=== PATIENT | female | born 1945 | race Caucasian/White ===

== ENCOUNTER 2018-01-15 13:17 | Outpatient (CLI) | payer MEDICARE, BC | END 2018-01-15 13:18 | disposition home or self-care (01) | LOC: BICMRI 13:17 | PROVIDERS: ATTEND Orthopaedic Surgery | DX: M79.621 Pain in right upper arm (principal); M79.622 Pain in left upper arm; M62.81 Muscle weakness (generalized); S13.140A Subluxation of C3/C4 cervical vertebrae, initial encounter; S13.150A Subluxation of C4/C5 cervical vertebrae, initial encounter; M99.51 Intervertebral disc stenosis of neural canal of cervical region; Z98.890 Other specified postprocedural states | CPT/HCPCS: 72141 ==

== ENCOUNTER 2018-01-31 09:21 | Outpatient (CLI) | payer MEDICARE, BC ==
--- NOTE | 2018-01-31 12:06 | CT ---
CT OF THE CERVICAL SPINE WITHOUT CONTRAST: INDICATION: History of right-sided shoulder pain and cervical radiculopathy. COMPARISON: MRI of the cervical spine dated 09/03/14. FINDINGS: Since the comparison examination, there has been interval placement of an ACDF plate spanning C3 thro ugh C5. Anterior translation of C3 and C4 is similar. There is ankylosis of the right C3-4 facet co mplex. There is at least partial ankylosis of the left C3-4 facet complex. There is suspected bridg ing interbody bone graft at C3-4. No appreciable interbody bone graft is seen within the bodies of C 4-5. At C2-C3, there is facet hypertrophy and osteoarthrosis without appreciable bilateral central canal a nd neural foraminal narrowing. At C3-4, there is uncovertebral hypertrophy and facet hypertrophy inducing mild to moderate osseous r ight neural foraminal narrowing. At C4-5, there is disk-osteophyte complex with facet hypertrophy inducing at least moderate right oss eous neural foraminal narrowing and mild osseous central canal narrowing. At C5-6, there is a disk-osteophyte complex with facet hypertrophy and uncovertebral hypertrophy velma cing severe left osseous neural foraminal narrowing and mild osseous central canal narrowing. At C6-7, there is no appreciable osseous central canal or neural foraminal narrowing. At C7-T1, there is no appreciable central canal or neural foraminal narrowing. IMPRESSION: 1. Postoperative cervical spine. 2. Multilevel spondylosis of the cervical spine. Osseous central canal and neural foraminal narrowi ng. POS: [facility]
== END 2018-01-31 09:22 | disposition home or self-care (01) ==
LOC: TBSIIMAG 09:21
PROVIDERS: ATTEND Neurological Surgery
DX: M47.22 Other spondylosis with radiculopathy, cervical region (principal); Z98.1 Arthrodesis status
CPT/HCPCS: 72125

== ENCOUNTER 2018-06-12 12:35 | Outpatient (CLI) | payer MEDICARE, BC | END 2018-06-12 12:36 | disposition home or self-care (01) | LOC: BICULT 12:35 | PROVIDERS: ATTEND Family Medicine | DX: E04.1 Nontoxic single thyroid nodule (principal); N18.3 Chronic kidney disease, stage 3 (moderate) | CPT/HCPCS: 76536 ==

== ENCOUNTER 2018-07-11 14:01 | Outpatient (CLI) | payer MEDICARE, BC | END 2018-07-11 14:02 | disposition home or self-care (01) | LOC: BICMAMMO 14:01 | PROVIDERS: ATTEND Family Medicine | DX: Z13.820 Encounter for screening for osteoporosis (principal); Z78.0 Asymptomatic menopausal state; M85.88 Other specified disorders of bone density and structure, other site | CPT/HCPCS: 77080 ==

== ENCOUNTER 2019-02-07 10:25 | Outpatient (CLI) | payer MEDICARE, BC ==
--- NOTE | 2019-02-07 11:31 | ULT ---
THYROID ULTRASOUND: HISTORY: Right thyroid nodule. COMPARISON: Though the patient states that there are prior ultrasounds available, prior ultrasound is not on the PACS system. FINDINGS: Left thyroid lobe measures 4.7 x 1.3 x 1.4 cm. The right thyroid lobe measures 4.7 x 1.3 x 1.5 cm. The thyroid isthmus is 0.3 cm. There is a solitary solid nodule in the mid aspect of the right thyroid lobe measuring 1.0 x 1.1 x 0. 8 cm. Note, the nodule is slightly taller than wide. IMPRESSION: Solitary solid nodule in the right thyroid lobe. TIRADS calculator score TR4. Moderately suspicious . Followup imaging is recommended. POS: OFF
== END 2019-02-07 10:26 | disposition home or self-care (01) ==
LOC: BICULT 10:25
PROVIDERS: ATTEND Otolaryngology Plastic Surgery within the Head & Neck
DX: E04.1 Nontoxic single thyroid nodule (principal)
CPT/HCPCS: 76536

== ENCOUNTER 2019-04-16 14:04 | Emergency (ER) | payer MEDICARE, BC ==
[2019-04-16 14:45] LABS: #Eosinphils 0.1 thou/uL (0.0-0.7); #Lymphocytes 1.9 thou/uL (1.20-3.40); #Monocytes 1.3 thou/uL (0.11-0.59); #Neutrophils 6.7 thou/uL (1.40-6.50); %Basophils 0.5 % (0.0-1.0); %Eosinophils 1.4 % (0.0-10.0); %Lymphocytes 18.7 % (21.0-51.0); %Monocytes 12.5 % (0.0-10.0); %Neutrophils 66.9 % (42.0-75.0); Hemoglobin 11.4 g/dL (12.0-16.0); Mean Corpuscular HGB CONC 32.8 g/dL (32.0-36.0); Mean Corpuscular Hemoglobin 32.1 pg (27.0-31.0); Mean Corpuscular Volume 97.9 fL (78.0-98.0); Mean Platelet Volume 7.7 fL (7.4-10.4); Platelet Count 161 thou/uL (130-400); RBC Distribution Width 12.7 % (11.5-14.5); Red Blood Cell (RBC) Count 3.55 mill/uL (4.20-5.40)
[2019-04-16 14:52] LABS: Bilirubin Negative (Negative); Blood, Urine Negative (Negative); Clarity CLEAR (Clear); Glucose, Urine (Dipstick) Negative (Negative); Leukocyte Negative (Negative); Nitrite Negative (Negative); Protein, Urine (Dipstick) Negative (Neg-Trace); Specific Gravity, Urine 1.007 (1.002-1.036); Urobilinogen 0.2 mg/dL (0.2-1.0)
[2019-04-16 15:09] LABS: ALT (SGPT) 17 U/L (8-55); AST (SGOT) 20 U/L (5-34); Albumin 4.1 g/dL (3.4-4.8); Alkaline Phosphatase 83 U/L (40-150); Anion Gap 14 mmol/L (10-20); BUN (Urea Nitrogen) 30 mg/dL (9.8-20.1); Bilirubin, Total 0.5 mg/dL (0.2-1.2); Calc. Creatinine Clearance 0 mL/min (70-130); Calcium 9.7 mg/dL (7.8-10.44); Carbon Dioxide 22 mmol/L (23-31); Chloride 103 mmol/L (98-107); Estimated GFR-MDRD 40; Glucose 99 mg/dL (83-110); Lipase 59 U/L (8-78); Potassium 4.3 mmol/L (3.5-5.1); Protein, Total 7.1 g/dL (6.0-8.3); Sodium 135 mmol/L (136-145)
--- NOTE | 2019-04-16 16:37 | CT ---
EXAM: CT ABDOMEN AND PELVIS HISTORY: Regarding. Right lower quadrant pain. COMPARISON: None. Procedure: Multiple contiguous axial images were obtained and a CT of the abdomen and pelvis with IV contrast. C oronal reformats were performed. FINDINGS: Lower Chest: Scar/atelectasis in the lingula and middle lobe Vessels: Atherosclerosis of a nonaneurysmal aorta. Atherosclerosis of the celiac artery origin. Heart: Normal size. No pericardial fluid. Mitral valve calcification. Abdomen: Portal vein:Patent Gallbladder: Surgically absent Liver: within normal limits. Pancreas: within normal limits. Spleen: within normal limits. Adrenals: within normal limits. Kidneys: Symmetric enhancement. Bilaterally no obstructive uropathy. Subcentimeter hypodensities in t he superior pole of both kidneys are too small to characterize but statistically favored to be cysts. Peritoneum: No ascites or free air, no fluid collection. Bowel: Limited evaluation due to lack of oral contrast. Grossly unremarkable gastric mucosa. Multiple normal caliber small bowel loops. Ileocecal junction is normal. Definite appendix is difficult to appreciate. Nevertheless, no inflammation of the cecal apex. Scattered fecal material in a nondistend ed, nondilated colon. Extensive diverticulosis. Questionable bowel wall thickening with pericolonic fat stranding involving the sigmoid colon. Correlate for possible diverticulitis or infectious proces s. Underlying tumor cannot be excluded. Nonemergent colonoscopy is recommended. Mesentery and Retroperitoneum: No enlarged mesenteric or retroperitoneal lymph nodes. Abdominal Wall: within normal limits. Pelvis: Reproductive Organs: Hysterectomy changes. Pelvis: Limited evaluation due to beam attenuation artifact from left hip prosthesis. There is a smal l amount of free fluid in the pelvis. Bladder: Grossly unremarkable. Bones: Scoliosis with endplate degenerative changes. IMPRESSION: 1. Nonvisualization of the appendix. Nevertheless, no inflammation of the cecal apex. 2. Extensive diverticulosis with possible diverticulitis or infectious colitis involving the sigmoid colon. Underlying mass cannot be excluded. Nonemergent colonoscopy is recommended.
== END 2019-04-16 17:58 | disposition home or self-care (01) ==
LOC: ERS 14:04
DX: K57.30 Diverticulosis of large intestine without perforation or abscess without bleeding (principal); E78.5 Hyperlipidemia, unspecified
CPT/HCPCS: 36415; 74177; 80048; 81003; 82570; 83690; 84156; 85025

== ENCOUNTER 2019-07-23 12:44 | Outpatient (CLI) | payer MEDICARE, BC ==
--- NOTE | 2019-07-23 14:48 | MRI ---
MRI lumbar spine with and without contrast: 07/23/2019 COMPARISON: 10/05/2016 History: Lumbar stenosis, low back pain radiating into bilateral lower extremities, bilateral lower e xtremity radiculopathy TECHNIQUE: Multiplanar multisequence MR imaging of the lumbar spine obtained with and without contras t FINDINGS: The sagittal STIR imaging demonstrates no new focal area of osseous marrow edema. As seen o n the prior examination, there is degenerative edematous endplate change at L1-2 through L3-4. There is stable mid lumbar spine dextroscoliosis. There is no significant anterolisthesis or retrolisthesis noted within the lumbar spine. On the basis of 5 lumbar type vertebral bodies, conus medullaris terminates at the T12-L1 level. T12-L1: There is disc space narrowing and disc desiccation with a small disc osteophyte complex as we ll as anterior osteophyte. Mild bilateral facet hypertrophy. No significant central canal or neural foraminal stenosis L1-2: Disc space narrowing, disc desiccation, and stable mild disc bulge. No significant central sondra l stenosis. Small foraminal and post foraminal disc protrusion present on the right. No significant central canal or neural foraminal stenosis. L2-3: Bilateral facet hypertrophy. Disc space narrowing and disc desiccation noted with disc bulge. N o significant central canal stenosis. Significant bilateral facet hypertrophy is present with mild bilateral neural foraminal stenosis. L3-4: There is disc space with disc desiccation and disc osteophyte complex, not significantly change d. No significant central canal stenosis. There is a foraminal and post foraminal disc protrusion on the left. There is mild left neural foraminal stenosis. There is no significant right neural quincy inal stenosis. L4-5: Disc space narrowing disc desiccation and degenerative endplate change and disc osteophyte comp wallace present. No significant central canal stenosis. There is significant bilateral facet hypertrophy with moderate left and mild right neural foraminal stenosis, unchanged. L5-S1: Disc space narrowing and disc desiccation with disc osteophyte complex. No central canal steno sis. There is significant bilateral facet hypertrophy with severe right and moderate left neural foraminal stenosis, similar when compared to the prior examination. There are numerous subcentimeter T2 hyperintensities within both kidneys suggesting tiny cyst, too sm all to characterize. No acute findings are noted within the retroperitoneum. Postcontrast imaging demonstrates no abnormal enhancement involving the contents of the thecal sac, t he intervertebral discs, or the imaged osseous structures. IMPRESSION: Prominent multilevel degenerative change noted within the lumbar spine, similar when comp ared the prior exam. The most significant stenosis involves bilateral neural foramina at L5-S1.
[2019-07-23] MEDS ORDERED: Gadobenate Dimeglumine 529 MG/1 ML (20ML VIAL) ONE (18:08)
== END 2019-07-23 12:45 | disposition home or self-care (01) ==
LOC: BICMRI 12:44
PROVIDERS: ATTEND Nurse Practitioner Family
DX: M48.062 Spinal stenosis, lumbar region with neurogenic claudication (principal); M47.816 Spondylosis without myelopathy or radiculopathy, lumbar region; M48.07 Spinal stenosis, lumbosacral region
CPT/HCPCS: 72158; 82565; A9577

== ENCOUNTER 2019-08-21 13:03 | Emergency (ER) | payer MEDICARE, BC | END 2019-08-21 13:35 | disposition home or self-care (01) | LOC: ERS 13:03 | DX: I10 Essential (primary) hypertension (principal); E78.5 Hyperlipidemia, unspecified; Z79.899 Other long term (current) drug therapy | CPT/HCPCS: 99283 ==

== ENCOUNTER 2020-05-25 02:16 | Emergency (ER) | payer MEDICARE, BC ==
[2020-05-25 04:15] LABS: ALT (SGPT) 28 U/L (8-55); AST (SGOT) 33 U/L (5-34); Alcohol 167 mg/dL (Less than 10); BUN (Urea Nitrogen) 12 mg/dL (9.8-20.1); Calc. Creatinine Clearance 0 mL/min (70-130); Estimated GFR-MDRD 59
[2020-05-25 04:16] LABS: Alkaline Phosphatase 77 U/L (40-110); Anion Gap 15 mmol/L (10-20); Bilirubin, Total 0.3 mg/dL (0.2-1.2); Calcium 9.1 mg/dL (7.8-10.44); Carbon Dioxide 23 mmol/L (23-31); Globulin 2.8 g/dL (2.4-3.5); Glucose 97 mg/dL (83-110); Potassium 3.6 mmol/L (3.5-5.1); Protein, Total 6.9 g/dL (5.8-8.1); Sodium 138 mmol/L (136-145)
[2020-05-25 04:17] LABS: Albumin 4.1 g/dL (3.4-4.8); Chloride 104 mmol/L (98-107)
[2020-05-25 04:18] LABS: #Eosinphils 0.1 thou/uL (0.0-0.7); #Lymphocytes 1.7 thou/uL (1.20-3.40); #Monocytes 1.2 thou/uL (0.11-0.59); #Neutrophils 7.3 thou/uL (1.40-6.50); %Basophils 0.2 % (0.0-1.0); %Eosinophils 0.9 % (0.0-10.0); %Lymphocytes 16.8 % (21.0-51.0); %Monocytes 11.2 % (0.0-10.0); %Neutrophils 70.9 % (42.0-75.0); Hemoglobin 12.6 g/dL (12.0-16.0); Mean Corpuscular HGB CONC 33.5 g/dL (32.0-36.0); Mean Corpuscular Hemoglobin 34.3 pg (27.0-31.0); Mean Platelet Volume 7.6 fL (7.4-10.4); Platelet Count 196 thou/uL (130-400); Red Blood Cell (RBC) Count 3.66 mill/uL (4.20-5.40); White Blood Cell (WBC) Count 10.3 thou/uL (4.8-10.8)
[2020-05-25 04:26] LABS: Bilirubin Negative (Negative); Blood, Urine Negative (Negative); Clarity Extra Turbid (Clear); Glucose, Urine (Dipstick) Normal (Negative); Ketone, Urine Negative (Negative); Leukocyte Negative Leu/uL (Negative); Nitrite Negative (Negative); Protein, Urine (Dipstick) Negative (Neg-Trace); Specific Gravity, Urine 1.002 (1.002-1.036); Urobilinogen Normal mg/dL (Less than 2); pH, Urine 6.5 (5.0-9.0)
[2020-05-25] MEDS ORDERED: Acetaminophen 500 MG TAB ONE (05:11)
[2020-05-25] MEDS ORDERED: Adacel (T-DAP) 0.5 ML SYRINGE ONE (05:11)
[2020-05-25] MEDS ORDERED: traMADol HCl 50 MG TAB ONE (05:11)
--- NOTE | 2020-05-25 07:09 | CT ---
PRELIMINARY REPORT/[facility]/EMERGENCY AFTER HOURS PROCEDURE EXAM: CT Head Without Intravenous Contrast. CLINICAL HISTORY: Patient presents after a mechanical fall at home. She struck the right side of her face but is not madison re on what TECHNIQUE: Axial computed tomography images of the head/brain without intravenous contrast. COMPARISON: None provided. FINDINGS: BRAIN: No acute intraparenchymal hemorrhage. No mass lesion. No CT evidence for acute territorial infarct. N o midline shift or extra-axial collection. Hypodensity of the white matter is nonspecific but likely represents chronic microvascular ischemic d isease. VENTRICLES: No hydrocephalus. Volume loss. ORBITS: The orbits are unremarkable. SINUSES AND MASTOIDS: The paranasal sinuses and mastoid air cells are clear. SOFT TISSUES: Extracranial soft tissue hematoma and laceration overlying the right frontal bone. BONES: No acute skull fracture. IMPRESSION: Chronic parenchymal changes. No acute intracranial abnormality. ELECTRONICALLY SIGNED BY: Trisha Vigil MD May 25, 2020 3:30:21 AM CDT This report is intended for review by the ordering physician only, in accordance of law. If you recei ve this report in error, please call [facility] at [phone]. FINAL REPORT EMERGENCY AFTER HOURS CT BRAIN WITHOUT CONTRAST: FINDINGS/IMPRESSION: I agree with the findings and impression given in the preliminary report per [facility] physici an. No evidence of acute intracranial abnormality. POS: [facility]
--- NOTE | 2020-05-25 07:50 | RAD ---
EXAM: 2 views of the right hip HISTORY: Right hip pain after fall COMPARISON: None FINDINGS: 2 views of the right hip shows no evidence of acute fracture or dislocation. No degenerativ e changes are seen. No soft tissue swelling is present. IMPRESSION: No evidence of acute osseous abnormality.
--- NOTE | 2020-05-25 07:51 | RAD ---
Exam: Single view of the pelvis HISTORY: Pelvic and right hip pain after fall COMPARISON: None FINDINGS: A single view the pelvis shows no evidence of acute fracture or dislocation. The patient licea s a left hip prosthesis. Surgical clips are seen in the pelvis. No degenerative changes seen in the right hip. Degenerative changes are seen in the lumbar spine. IMPRESSION: No evidence of acute osseous abnormality.
--- NOTE | 2020-05-25 08:06 | CT ---
PRELIMINARY REPORT/[facility]/EMERGENCY AFTER HOURS PROCEDURE PROCEDURE: CT RIGHT hip. HISTORY: Fall. TECHNIQUE: Axial images done through the RIGHT hip with multiplanar reformations. COMPARISONS: None . FINDINGS: And nondisplaced fracture through the RIGHT sacral ala. Nondisplaced fractures through the RIGHT symphysis pubis and inferior pubic ramus. No other fracture or dislocation. Mild osteoarthritic changes RIGHT hip with spur formation. No soft tissue abnormality. IMPRESSION: RIGHT pelvic fractures as described above. ELECTRONICALLY SIGNED BY: Zain Xavier MD May 25, 2020 4:46:40 AM CDT This report is intended for review by the ordering physician only, in accordance of law. If you recei ve this report in error, please call [facility] at [phone]. FINAL REPORT EMERGENCY AFTER HOURS CT RIGHT HIP: I agree with preliminary port given by Dr. Zain Xavier of [facility]. Transcribed Date/Time: 05/25/2020 8:19 AM
== END 2020-05-25 05:57 | disposition home or self-care (01) ==
LOC: ERS 02:16
DX: S32.10XA Unspecified fracture of sacrum, initial encounter for closed fracture (principal); S32.591A Other specified fracture of right pubis, initial encounter for closed fracture; S01.111A Laceration without foreign body of right eyelid and periocular area, initial encounter; E78.5 Hyperlipidemia, unspecified; Z79.899 Other long term (current) drug therapy; Z23 Encounter for immunization; W01.0XXA Fall on same level from slipping, tripping and stumbling without subsequent striking against object, initial encounter; Y92.009 Unspecified place in unspecified non-institutional (private) residence as the place of occurrence of the external cause
CPT/HCPCS: 12011; 70450; 72170; 80053; 80307; 81003; 85025; 90471; 90715; 96374; 96375

== ENCOUNTER 2020-07-23 13:36 | Outpatient (CLI) | payer MEDICARE, BC ==
[~2020-07-23 13:36] MED LIST: Magnevist 469MG/ML 20 ML VIAL ONE
--- NOTE | 2020-07-23 15:21 | MRI ---
MR CERVICAL SPINE WITHOUT CONTRAST INDICATION: Cervical radiculopathy TECHNIQUE: Multiplanar multisequence MR images were obtained of the cervical spine without contrast. COMPARISON: Prior MR of the cervical spine from prior radiology associates dated January 15, 2018. FINDINGS: Posterior fossa: Within normal limits. Bone marrow signal intensity: There is susceptibility artifact from an ACDF spanning C3-C5. This appe ars similar to the comparison examination. Spinal alignment: There is very slight anterolisthesis of C3 on C4 with mild retrolisthesis of C4 on C5 which is stable. Craniocervical junction: Normal appearing. Prevertebral and perivertebral soft tissues: Visualized soft tissues appear within normal limits. Vertebral levels: C2-C3: No appreciable central canal or neuroforaminal narrowing. C3-4: No appreciable central canal or neuroforaminal narrowing. C4-5: There is residual osteophyte complex with facet joint degenerative change inducing moderate to severe right and mild left neural foraminal narrowing which is stable to the prior exam. There is a stable osteophyte complex causing mild effacement of the spinal cord without cord signal abnormalit y. C5-C6: There is a residual osteophyte complex and facet joint degenerative change inducing stable sev ere left and mild right neural foraminal narrowing. There is an osteophyte complex inducing mild ventral effacement of the spinal cord without cord signal abnormality. C6-C7:, No appreciable central canal or neuroforaminal narrowing. C7-T1: No appreciable central canal or neuroforaminal narrowing. IMPRESSION: 1. Stable spondylosis of the cervical spine. 2. Stable moderate central canal narrowing with mild ventral effacement spinal cord at C4-5 and C5-6. 3. Stable moderate to severe right and mild left neural foraminal narrowing at C4-5. 4. Stable severe left and mild right neural foraminal narrowing at C5-6.
--- NOTE | 2020-07-23 15:58 | MRI ---
MR the lumbar spine with and without contrast INDICATION: 74-year-old female with low back pain and back spasms COMPARISON: Prior MR the lumbar spine with and without contrast dated July 23, 2019 TECHNIQUE: Multiplanar multisequence MR images were obtained of lumbar spine with and without IV cont rast. Contrast: 6 cc of MultiHance. FINDINGS: Bone marrow: There is abnormal marrow signal intensity involving the sacral ala bilaterally extending across midline at S2 and S3 consistent with sacral insufficiency fractures. This is new from the prior exam. There is Modic endplate degenerative changes involving multiple lumbar intervertebral lev els most pronounced at L3-4 and L2-3. Distal spinal cord and conus: Normal. Conus is seen to terminate at the L1 level. Visualized retroperitoneum and paraspinal soft tissues: There are bilateral renal cysts. Vertebral levels: L5-S1: There is a broad-based disc osteophyte complex. There is postsurgical change of a right hemila minectomy. There is loss of normal disc signal and height. There is facet hypertrophy. There is moderate to severe bilateral neural foraminal narrowing which is stable. L4-5: There is a broad-based disc osteophyte complex with facet hypertrophy and loss of disc space he ight inducing moderate bilateral neural foraminal narrowing which is stable. L3-4: There is a broad-based disc osteophyte complex with facet hypertrophy inducing moderate to yamil re left neural foraminal narrowing which is stable to the prior exam. L2-3: There is a broad-based disc osteophyte complex and facet hypertrophy inducing mild central sondra l narrowing with mild bilateral neural foraminal narrowing. This is stable to the prior exam. L1-L2: There is a broad-based disc osteophyte complex with facet hypertrophy but no appreciable centr al canal narrowing. There is mild right neural foraminal narrowing which is stable. T12-L1: There is a broad-based disc bulge without appreciable central canal or neural foraminal narro wing. Postcontrast series: No abnormal enhancement demonstrated. IMPRESSION: 1. Acute bilateral sacral insufficiency fractures. 2. Stable moderate to severe spondylosis of the lumbar spine with multilevel neural foraminal narrowi ng as above.
== END 2020-07-23 13:37 | disposition home or self-care (01) ==
LOC: BICMRI 13:36
PROVIDERS: ATTEND Neurological Surgery
DX: M47.22 Other spondylosis with radiculopathy, cervical region (principal); M54.5 Low back pain; M84.48XA Pathological fracture, other site, initial encounter for fracture; M47.816 Spondylosis without myelopathy or radiculopathy, lumbar region; M48.061 Spinal stenosis, lumbar region without neurogenic claudication; M48.07 Spinal stenosis, lumbosacral region; M48.02 Spinal stenosis, cervical region
CPT/HCPCS: 72141; 72158; 82565; A9579

== ENCOUNTER 2020-08-15 10:45 | Emergency (ER) | payer MEDICARE, BC ==
--- NOTE | 2020-08-15 12:24 | RAD ---
Exam:2 views left hip HISTORY: Pain COMPARISON: None FINDINGS: Remote injury involving the right obturator ring. No acute bony pelvic fracture. Uncomplica mitchell left hip arthroplasty. IMPRESSION: Uncomplicated left hip arthroplasty.
--- NOTE | 2020-08-15 12:25 | RAD ---
Exam: One view pelvis COMPARISON: 05/25/2020 FINDINGS: Interval callus formation involving a previous right obturator ring fracture. Acute bony pe lvis is intact. Right hip is unremarkable. Uncomplicated left hip. IMPRESSION: No acute abnormality in the bony pelvis.
[2020-08-15] MEDS ORDERED: predniSONE 20 MG TAB ONE ×2 (13:25)
[2020-08-15] MEDS ORDERED: traMADol HCl 50 MG TAB ONE (13:26)
== END 2020-08-15 13:32 | disposition home or self-care (01) ==
LOC: ERS 10:45
DX: S39.012A Strain of muscle, fascia and tendon of lower back, initial encounter (principal); E78.5 Hyperlipidemia, unspecified; I10 Essential (primary) hypertension; Z79.899 Other long term (current) drug therapy; X58.XXXA Exposure to other specified factors, initial encounter
CPT/HCPCS: 72170; J7512

== ENCOUNTER 2021-01-10 14:27 | Outpatient (CLI) | payer MEDICARE, BC | END 2021-01-10 14:28 | disposition home or self-care (01) | LOC: BICMAMMO 14:27 | PROVIDERS: ATTEND Physician Assistant | DX: M85.852 Other specified disorders of bone density and structure, left thigh (principal) | CPT/HCPCS: 77080 ==

== ENCOUNTER 2021-03-31 13:38 | Outpatient (CLI) | payer MEDICARE, BC | END 2021-03-31 13:39 | disposition home or self-care (01) | LOC: ULT 13:38 | PROVIDERS: ATTEND Orthopaedic Surgery | DX: R22.41 Localized swelling, mass and lump, right lower limb (principal) ==

== ENCOUNTER 2021-05-10 12:52 | Outpatient (CLI) | payer MEDICARE, BC | END 2021-05-10 12:53 | disposition home or self-care (01) | LOC: BICMRI 12:52 | PROVIDERS: ATTEND Orthopaedic Surgery | DX: M25.561 Pain in right knee (principal); M94.261 Chondromalacia, right knee ==

== ENCOUNTER 2021-06-07 13:39 | Outpatient (CLI) | payer MEDICARE, BC | END 2021-06-07 13:40 | disposition home or self-care (01) | LOC: BICRAD 13:39 | PROVIDERS: ATTEND Physician Assistant | DX: R07.9 Chest pain, unspecified (principal) | CPT/HCPCS: 71046 ==

== ENCOUNTER 2021-08-05 17:56 | Inpatient (IN) | payer MEDICARE, BC ==
[2021-08-05 20:50] LABS: ALT (SGPT) 18 U/L (8-55); AST (SGOT) 28 U/L (5-34); Albumin 3.8 g/dL (3.4-4.8); Alkaline Phosphatase 75 U/L (40-110); Anion Gap 11 mmol/L (10-20); BUN (Urea Nitrogen) 22 mg/dL (9.8-20.1); Bilirubin, Total 0.3 mg/dL (0.2-1.2); Calc. Creatinine Clearance 0 mL/min (70-130); Calcium 9.5 mg/dL (7.8-10.44); Carbon Dioxide 29 mmol/L (23-31); Chloride 104 mmol/L (98-107); Globulin 2.8 g/dL (2.4-3.5); Glucose 91 mg/dL (83-110); Potassium 3.9 mmol/L (3.5-5.1); Protein, Total 6.6 g/dL (5.8-8.1); Sodium 140 mmol/L (136-145)
[2021-08-05 20:55] LABS: Band 6 % (5-11); Eosinophils 3 % (0-10); Hemoglobin 12.2 g/dL (12.0-16.0); Lymphocytes 37 % (21-51); MDiff Complete? YES; Mean Corpuscular HGB CONC 34.1 g/dL (32.0-36.0); Mean Corpuscular Hemoglobin 34.7 pg (27.0-31.0); Mean Platelet Volume 6.6 fL (7.4-10.4); Monocytes 9 % (0-10); Neutrophil 45 % (42-75); Platelet Count 209 thou/uL (130-400); RBC Distribution Width 13.1 % (11.5-14.5); Red Blood Cell (RBC) Count 3.52 mill/uL (4.20-5.40); White Blood Cell (WBC) Count 6.5 thou/uL (4.8-10.8)
[2021-08-05 21:16] LABS: Bacteria/HPF 4+ HPF (None Seen); Bilirubin Negative (Negative); Blood, Urine Negative (Negative); Clarity Clear (Clear); Glucose, Urine (Dipstick) Normal (Negative); Ketone, Urine Negative (Negative); Leukocyte 500 Leu/uL (Negative); Nitrite Negative (Negative); Protein, Urine (Dipstick) Negative (Neg-Trace); RBC/HPF None Seen HPF (0-3); Specific Gravity, Urine 1.006 (1.002-1.036); Squamous Epithelial 0-3 HPF (0-3); Urobilinogen Normal mg/dL (Less than 2); WBC/HPF Greater than 50 HPF (0-3)
[2021-08-05] MEDS ORDERED: Senokot S 8.6-50 MG TAB PO PRN (22:14)
[2021-08-05] MEDS ORDERED: Acetaminophen 325 MG TAB PO PRN (22:14)
[2021-08-05] MEDS ORDERED: Ondansetron PF 4 MG/2 ML Vial IVP PRN (22:14)
[2021-08-05] MEDS ORDERED: MEROPENEM 1 GM/50 ML 1 GM in Premix Bag 1 BAG IVPB SCH (22:15)
[2021-08-05] MEDS ORDERED: Melatonin 3 MG TAB PO PRN (22:19)
[2021-08-05] MEDS ORDERED: hydrALAZINE 20 MG/ML VIAL SLOW IVP PRN (22:19)
[2021-08-05] MEDS ORDERED: Pantoprazole 40 MG GRANULES PACKET PO SCH (22:21)
[2021-08-05] MEDS ORDERED: traMADol HCl 50 MG TAB ONE (22:49)
[2021-08-06 02:19] VITALS: BMI 26.9
[2021-08-06] MEDS: Meropenem 500 MG in Sodium Chloride 0.9% 100 ML IVPB SCH ×2 (06:24→17:22)
[2021-08-06 06:42] LABS: Anion Gap 10 mmol/L (10-20); BUN (Urea Nitrogen) 21 mg/dL (9.8-20.1); Calc. Creatinine Clearance 42 mL/min (70-130); Calcium 8.6 mg/dL (7.8-10.44); Carbon Dioxide 25 mmol/L (23-31); Chloride 104 mmol/L (98-107); Glucose 109 mg/dL (83-110); Potassium 3.5 mmol/L (3.5-5.1); Sodium 135 mmol/L (136-145)
[2021-08-06] MEDS ORDERED: traMADol HCl 50 MG TAB PO PRN (06:43)
[2021-08-06] MEDS: Aspirin 81 mg Enteric Coated Tablet PO SCH (07:58)
[2021-08-06] MEDS: Carvedilol 6.25 MG TAB PO SCH ×2 (07:58→20:30)
[2021-08-06] MEDS: Pantoprazole 40 MG GRANULES PACKET PO SCH (07:58)
[2021-08-06 08:15] LABS: Band 2 % (5-11); Eosinophils 10 % (0-10); Hemoglobin 10.3 g/dL (12.0-16.0); Lymphocytes 21 % (21-51); MDiff Complete? YES; Mean Corpuscular HGB CONC 32.9 g/dL (32.0-36.0); Mean Corpuscular Hemoglobin 33.6 pg (27.0-31.0); Mean Platelet Volume 6.7 fL (7.4-10.4); Monocytes 17 % (0-10); Neutrophil 48 % (42-75); Platelet Count 179 thou/uL (130-400); RBC Distribution Width 13.1 % (11.5-14.5); Reactive Lymphocytes 2 % (0-10); Red Blood Cell (RBC) Count 3.06 mill/uL (4.20-5.40); White Blood Cell (WBC) Count 5.7 thou/uL (4.8-10.8)
[2021-08-06] MEDS ORDERED: Non-Formulary Item 1 EACH (Esomeprazole Magnesium [Nexium] 40 MG Cap) PO SCH (09:00)
[2021-08-06 17:17] LABS: SARS-CoV-2 PCR by NAA Not Detected (NotDetected)
[2021-08-06] MEDS: traZODone HCl 50 MG TAB PO PRN (20:30)
[2021-08-07] MEDS: Meropenem 500 MG in Sodium Chloride 0.9% 100 ML IVPB SCH (05:51)
[2021-08-07] MEDS: Aspirin 81 mg Enteric Coated Tablet PO SCH (08:09)
[2021-08-07] MEDS: Carvedilol 6.25 MG TAB PO SCH ×2 (08:09→21:29)
[2021-08-07] MEDS: Pantoprazole 40 MG GRANULES PACKET PO SCH (08:09)
[2021-08-07 08:49] LABS: Anion Gap 10 mmol/L (10-20); BUN (Urea Nitrogen) 16 mg/dL (9.8-20.1); Calc. Creatinine Clearance 44 mL/min (70-130); Carbon Dioxide 26 mmol/L (23-31); Chloride 109 mmol/L (98-107); Sodium 141 mmol/L (136-145)
[2021-08-07 08:50] LABS: Calcium 8.8 mg/dL (7.8-10.44); Glucose 104 mg/dL (83-110)
[2021-08-07] MEDS ORDERED: Nystatin Cream 15 GM TUBE TOP PRN (12:50)
[2021-08-07] MEDS: MEROPENEM 1 GM/50 ML 1 GM in Premix Bag 1 BAG IVPB SCH ×2 (14:00→21:29)
[2021-08-07] MEDS ORDERED: Meropenem 1,000 MG in Sodium Chloride 0.9% 100 ML IVPB SCH (15:00)
[2021-08-07] MEDS ORDERED: Mag-Al Plus 1200 MG/1200 MG/120 MG/30 ML UDCUP PO PRN (16:45)
[2021-08-07] MEDS ORDERED: MEROPENEM 1 GM/50 ML 1 GM in Premix Bag 1 BAG IVPB SCH (18:00)
[2021-08-07] MEDS: traZODone HCl 50 MG TAB PO PRN (21:29)
[2021-08-08] MEDS: MEROPENEM 1 GM/50 ML 1 GM in Premix Bag 1 BAG IVPB SCH ×3 (05:58→20:54)
[2021-08-08 07:34] LABS: Anion Gap 9 mmol/L (10-20); BUN (Urea Nitrogen) 15 mg/dL (9.8-20.1); Calc. Creatinine Clearance 49 mL/min (70-130); Calcium 8.9 mg/dL (7.8-10.44); Carbon Dioxide 25 mmol/L (23-31); Chloride 110 mmol/L (98-107); Glucose 114 mg/dL (83-110); Sodium 140 mmol/L (136-145)
[2021-08-08 07:51] LABS: Hemoglobin 10.7 g/dL (12.0-16.0); Mean Corpuscular HGB CONC 31.7 g/dL (32.0-36.0); Mean Corpuscular Hemoglobin 32.7 pg (27.0-31.0); Mean Platelet Volume 7.5 fL (7.4-10.4); Platelet Count 199 thou/uL (130-400); RBC Distribution Width 13.3 % (11.5-14.5); Red Blood Cell (RBC) Count 3.27 mill/uL (4.20-5.40); White Blood Cell (WBC) Count 4.8 thou/uL (4.8-10.8)
[2021-08-08] MEDS: Carvedilol 6.25 MG TAB PO SCH ×2 (08:28→20:46)
[2021-08-08] MEDS: Aspirin 81 mg Enteric Coated Tablet PO SCH (08:28)
[2021-08-08 09:38] LABS: Band 1 % (5-11); Eosinophils 6 % (0-10); Lymphocytes 26 % (21-51); MDiff Complete? YES; Metamyelocyte 1 % (0-0); Monocytes 18 % (0-10); Neutrophil 41 % (42-75); Platelet Morphology Comment Appears Adequate; Polychromasia SLIGHT = 2-3 cells (100X) (0-2/hpf); Reactive Lymphocytes 7 % (0-10)
[2021-08-08] MEDS: traZODone HCl 50 MG TAB PO PRN (20:46)
[2021-08-09] MEDS: MEROPENEM 1 GM/50 ML 1 GM in Premix Bag 1 BAG IVPB SCH ×2 (05:46→14:16)
[2021-08-09] MEDS: Aspirin 81 mg Enteric Coated Tablet PO SCH (08:10)
[2021-08-09] MEDS: Carvedilol 6.25 MG TAB PO SCH (08:10)
[2021-08-09 08:11] VITALS: BP 137/73
[2021-08-09 08:13] VITALS: TEMP 97.8
== END 2021-08-09 17:32 | disposition home or self-care (01) | DRG 690 ==
LOC: ERS 17:56 → T4-A 22:10
PROVIDERS: ADMIT Internal Medicine; ATTEND Internal Medicine
PROC: 02HV33Z Insertion of Infusion Device into Superior Vena Cava, Percutaneous Approach (ICD-10-PCS; principal; 2021-08-08)
PROC: B5181ZA Fluoroscopy of Superior Vena Cava using Low Osmolar Contrast, Guidance (ICD-10-PCS; 2021-08-08)
DX: N30.00 Acute cystitis without hematuria (principal); Z16.24 Resistance to multiple antibiotics; N17.9 Acute kidney failure, unspecified; Z96.642 Presence of left artificial hip joint; K21.9 Gastro-esophageal reflux disease without esophagitis; I12.9 Hypertensive chronic kidney disease with stage 1 through stage 4 chronic kidney disease, or unspecified chronic kidney disease; D64.9 Anemia, unspecified; N18.30 Chronic kidney disease, stage 3 unspecified; B96.20 Unspecified Escherichia coli [E. coli] as the cause of diseases classified elsewhere; M19.90 Unspecified osteoarthritis, unspecified site; Z20.822 Contact with and (suspected) exposure to COVID-19; E78.5 Hyperlipidemia, unspecified; G89.29 Other chronic pain; Z90.49 Acquired absence of other specified parts of digestive tract; Z90.710 Acquired absence of both cervix and uterus; Z88.8 Allergy status to other drugs, medicaments and biological substances; Z88.1 Allergy status to other antibiotic agents; Z88.5 Allergy status to narcotic agent; Z88.2 Allergy status to sulfonamides; Z79.82 Long term (current) use of aspirin; Z79.899 Other long term (current) drug therapy; G47.00 Insomnia, unspecified
CPT/HCPCS: 36415; 36569; 74176; 80048; 80053; 81001; 81003; 81015; 83605; 85025; 87077; 87086; 87186; 90471; 90732; C1751; G0009; J2185; J3490; U0003; U0005

== ENCOUNTER 2021-09-10 23:34 | Emergency (ER) | payer MEDICARE, BC ==
[2021-09-11 00:29] LABS: Acetaminophen Less than 6.0 mcg/mL (10.0-30.0); Alcohol 342 mg/dL (Less than 10); Salicylate Less than 8.0 mg/dL (15.0-30.0)
== END 2021-09-11 03:00 | disposition home or self-care (01) ==
LOC: ERS 23:34
DX: F10.129 Alcohol abuse with intoxication, unspecified (principal); S01.01XA Laceration without foreign body of scalp, initial encounter; S51.012A Laceration without foreign body of left elbow, initial encounter; S91.114A Laceration without foreign body of right lesser toe(s) without damage to nail, initial encounter; E78.5 Hyperlipidemia, unspecified; I10 Essential (primary) hypertension; Z79.82 Long term (current) use of aspirin; Z79.899 Other long term (current) drug therapy; Y90.8 Blood alcohol level of 240 mg/100 ml or more; W07.XXXA Fall from chair, initial encounter
CPT/HCPCS: 36415; 70450; 72125; 80307

== ENCOUNTER 2021-11-30 21:44 | Emergency (ER) | payer MEDICARE, BC ==
[2021-11-30 22:42] LABS: #Lymphocytes 1.8 thou/uL (1.20-3.40); #Monocytes 0.7 thou/uL (0.11-0.59); #Neutrophils 3.1 thou/uL (1.40-6.50); %Basophils 0.6 % (0.0-1.0); %Eosinophils 0.7 % (0.0-10.0); %Lymphocytes 31.7 % (21.0-51.0); %Monocytes 12.2 % (0.0-10.0); %Neutrophils 54.9 % (42.0-75.0); Hemoglobin 12.5 g/dL (12.0-16.0); Mean Corpuscular HGB CONC 33.7 g/dL (32.0-36.0); Mean Corpuscular Hemoglobin 32.6 pg (27.0-31.0); Mean Corpuscular Volume 96.9 fL (78.0-98.0); Mean Platelet Volume 6.8 fL (7.4-10.4); Platelet Count 186 thou/uL (130-400); RBC Distribution Width 13.7 % (11.5-14.5); Red Blood Cell (RBC) Count 3.82 mill/uL (4.20-5.40); White Blood Cell (WBC) Count 5.7 thou/uL (4.8-10.8)
[2021-11-30 23:03] LABS: ALT (SGPT) 20 U/L (8-55); AST (SGOT) 28 U/L (5-34); Albumin 3.9 g/dL (3.4-4.8); Alkaline Phosphatase 66 U/L (40-110); Anion Gap 14 mmol/L (10-20); BUN (Urea Nitrogen) 22 mg/dL (9.8-20.1); Bilirubin, Total 0.7 mg/dL (0.2-1.2); Calc. Creatinine Clearance 0 mL/min (70-130); Carbon Dioxide 24 mmol/L (23-31); Chloride 97 mmol/L (98-107); Globulin 2.7 g/dL (2.4-3.5); Glucose 96 mg/dL (83-110); Potassium 4.1 mmol/L (3.5-5.1); Protein, Total 6.6 g/dL (5.8-8.1); Sodium 131 mmol/L (136-145)
== END 2021-11-30 23:45 | disposition home or self-care (01) ==
LOC: ERS 21:44
DX: I10 Essential (primary) hypertension (principal); E78.5 Hyperlipidemia, unspecified; Z79.899 Other long term (current) drug therapy; Z79.82 Long term (current) use of aspirin
CPT/HCPCS: 80053; 84484; 85025; 93005

== ENCOUNTER 2022-01-09 15:41 | Outpatient (CLI) | payer MEDICARE, BC | END 2022-01-09 15:42 | disposition home or self-care (01) | LOC: BICMAMMO 15:41 | PROVIDERS: ATTEND Physician Assistant | DX: Z12.31 Encounter for screening mammogram for malignant neoplasm of breast (principal) | CPT/HCPCS: 77063; 77067 ==

== ENCOUNTER 2022-01-27 15:19 | Outpatient (CLI) | payer MEDICARE, BC | END 2022-01-27 15:20 | disposition home or self-care (01) | LOC: BICRAD 15:19 | PROVIDERS: ATTEND Physician Assistant | DX: Z09 Encounter for follow-up examination after completed treatment for conditions other than malignant neoplasm (principal) | CPT/HCPCS: 71046 ==

== ENCOUNTER 2022-11-29 18:03 | Emergency (ER) | payer MEDICARE, BC ==
[2022-11-29 18:36] LABS: #Basophils 0.1 thou/uL (0.0-0.2); #Eosinphils 0.1 thou/uL (0.0-0.7); #Lymphocytes 3.3 thou/uL (1.20-3.40); %Basophils 1.4 % (0.0-1.0); %Eosinophils 1.8 % (0.0-10.0); %Lymphocytes 44.1 % (21.0-51.0); %Monocytes 12.9 % (0.0-10.0); %Neutrophils 39.7 % (42.0-75.0); Hemoglobin 13.3 g/dL (12.0-16.0); Mean Corpuscular HGB CONC 33.4 g/dL (32.0-36.0); Mean Corpuscular Hemoglobin 32.7 pg (27.0-31.0); Mean Corpuscular Volume 97.9 fl (78.0-98.0); Mean Platelet Volume 7.1 fL (7.4-10.4); Platelet Count 209 10x3/uL (130-400); RBC Distribution Width 14.1 % (11.5-14.5); Red Blood Cell (RBC) Count 4.06 mill/uL (4.20-5.40); White Blood Cell (WBC) Count 7.5 10x3/uL (4.8-10.8)
[2022-11-29 18:59] LABS: ALT (SGPT) 26 U/L (8-55); AST (SGOT) 31 U/L (5-34); Albumin 4.1 g/dL (3.4-4.8); Alkaline Phosphatase 72 U/L (40-110); Anion Gap 16 mmol/L (10-20); BUN (Urea Nitrogen) 22 mg/dL (9.8-20.1); Bilirubin, Total 0.2 mg/dL (0.2-1.2); Calc. Creatinine Clearance 0 mL/min (70-130); Calcium 9.9 mg/dL (7.8-10.44); Carbon Dioxide 27 mmol/L (23-31); Chloride 106 mmol/L (98-107); Estimated GFR 57; Globulin 3.5 g/dL (2.4-3.5); Glucose 90 mg/dL (83-110); Lipase 79 U/L (8-78); Magnesium 2.2 mg/dL (1.6-2.6); Potassium 3.9 mmol/L (3.5-5.1); Protein, Total 7.6 g/dL (5.8-8.1); Sodium 145 mmol/L (136-145)
== END 2022-11-29 20:01 | disposition home or self-care (01) ==
LOC: ERS 18:03
DX: R55 Syncope and collapse (principal); F10.129 Alcohol abuse with intoxication, unspecified; F32.A Depression, unspecified; I10 Essential (primary) hypertension; E78.5 Hyperlipidemia, unspecified; Y90.9 Presence of alcohol in blood, level not specified
CPT/HCPCS: 36415; 80053; 83690; 83735; 85025; 93005; 96360

== ENCOUNTER 2023-02-09 14:01 | Outpatient (CLI) | payer MEDICARE, BC | END 2023-02-09 14:02 | disposition home or self-care (01) | LOC: BICMAMMO 14:01 | PROVIDERS: ATTEND Family Medicine | DX: Z12.31 Encounter for screening mammogram for malignant neoplasm of breast (principal) | CPT/HCPCS: 77063; 77067 ==

== ENCOUNTER 2023-11-24 09:16 | Inpatient (IN) | payer MEDICARE, BC ==
[2023-11-24] MEDS ORDERED: Sodium Chloride 0.9% 100 ML ONE (09:30)
[2023-11-24] MEDS ORDERED: dilTIAZem 125 MG/25 ML SDV ONE (09:30)
[2023-11-24 09:38] LABS: #Basophils 0.1 thou/uL (0.0-0.2); #Monocytes 0.7 thou/uL (0.11-0.59); #Neutrophils 6.3 thou/uL (1.40-6.50); %Basophils 0.6 % (0.0-1.0); %Eosinophils 0.3 % (0.0-10.0); %Lymphocytes 34.8 % (21.0-51.0); %Monocytes 6.4 % (0.0-10.0); %Neutrophils 57.4 % (42.0-75.0); Hematocrit 35.5 % (36.0-47.0); Hemoglobin 11.8 g/dL (12.0-16.0); Mean Corpuscular HGB CONC 33.2 g/dL (32.0-36.0); Mean Corpuscular Hemoglobin 32.8 pg (27.0-31.0); Mean Corpuscular Volume 98.6 fl (78.0-98.0); Mean Platelet Volume 9.6 fL (7.4-10.4); Platelet Count 208 10x3/uL (130-400); RBC Distribution Width 15.2 % (11.5-14.5); White Blood Cell (WBC) Count 10.9 10x3/uL (4.8-10.8)
[2023-11-24 10:06] LABS: ALT (SGPT) 22 U/L (8-55); AST (SGOT) 53 U/L (5-34); Albumin 3.7 g/dL (3.4-4.8); Alkaline Phosphatase 63 U/L (40-110); Anion Gap 25 mmol/L (10-20); BUN (Urea Nitrogen) 49 mg/dL (9.8-20.1); Bilirubin, Total 0.3 mg/dL (0.2-1.2); Calc. Creatinine Clearance 0 mL/min (70-130); Calcium 8.5 mg/dL (7.8-10.44); Carbon Dioxide 14 mmol/L (23-31); Chloride 106 mmol/L (98-107); Estimated GFR 34; Lipase 47 U/L (8-78); Potassium 3.8 mmol/L (3.5-5.1); Protein, Total 6.7 g/dL (5.8-8.1); Sodium 141 mmol/L (136-145)
[2023-11-24 10:09] LABS: Troponin I Less than 0.010 ng/mL (< 0.028)
[2023-11-24 10:13] LABS: Critical Call Chemistry NUR.CT6 @1013; Glucose 52 mg/dL (83-110)
[2023-11-24] MEDS ORDERED: Ondansetron ODT 4 MG TAB SL PRN (11:30)
[2023-11-24] MEDS ORDERED: dilTIAZem 125 MG, Admixture Fee 1 EACH in Sodium Chloride 0.9% 100 ML IVPB SCH (11:30)
[2023-11-24] MEDS ORDERED: Ondansetron PF 4 MG/2 ML Vial IVP PRN (11:30)
[2023-11-24] MEDS ORDERED: Acetaminophen 325 MG TAB PO PRN (11:30)
[2023-11-24] MEDS ORDERED: Lorazepam 2 MG/ML VIAL IM PRN (12:34)
[2023-11-24] MEDS ORDERED: Lorazepam 1 MG TAB PO PRN (12:34)
[2023-11-24] MEDS ORDERED: Dextrose 5% in Water 1,000 ML IV PRN (12:34)
[2023-11-24] MEDS ORDERED: Glucagon 1 MG/ML KIT IM PRN (12:34)
[2023-11-24] MEDS ORDERED: Dextrose 50% Abboject 50 ML SYRINGE SLOW IVP PRN (12:34)
[2023-11-24] MEDS ORDERED: traMADol HCl 50 MG TAB PO PRN (12:44)
[2023-11-24] MEDS ORDERED: Temazepam 15 MG CAP PO PRN (12:44)
[2023-11-24] MEDS ORDERED: Metoclopramide HCl 10 MG (2 mL) VIAL IVP PRN (12:44)
[2023-11-24] MEDS ORDERED: dilTIAZem 125 MG in Sodium Chloride 0.9% 100 ML IVPB SCH ×3 (12:45→18:23)
[2023-11-24] MEDS ORDERED: Electrolyte Replacement Protocol 1 EACH FS SCH (12:45)
[2023-11-24] MEDS ORDERED: Electrolyte Replacement Protocol FS PRN (13:15)
[2023-11-24] MEDS ORDERED: Folic Acid 1 MG TAB PO SCH (13:15)
[2023-11-24] MEDS ORDERED: Multivit, Therapeutic 1 TAB PO SCH (13:15)
[2023-11-24 13:32] LABS: Magnesium 1.8 mg/dL (1.6-2.6); Phosphorus 5.4 mg/dL (2.3-4.7)
[2023-11-24] MEDS ORDERED: Magnesium 2 GM/50 ML(in water) 2 GM in Premix 1 BAG IVPB SCH (13:45)
[2023-11-24] MEDS: Sodium Bicarbonate 150 MEQ in Dextrose 5% in Water 1,000 ML IV SCH (14:46)
[2023-11-24 15:25] VITALS: BMI 29.4
[2023-11-24] MEDS ORDERED: Enoxaparin 60 MG (0.6 mL) SYRINGE SC SCH (16:45)
[2023-11-24] MEDS: Rosuvastatin 20 MG TAB PO SCH (21:12)
[2023-11-24 21:39] LABS: Bilirubin Negative (Negative); Blood, Urine Trace (Negative); Clarity Clear (Clear); Glucose, Urine (Dipstick) Normal (Negative); Ketone, Urine 10 mg/dL (Negative); Leukocyte 500 Leu/uL (Negative); Nitrite Negative (Negative); Protein, Urine (Dipstick) Negative (Neg-Trace); RBC/HPF 0-3 HPF (0-3); Specific Gravity, Urine 1.011 (1.002-1.036); Squamous Epithelial 0-3 HPF (0-3); Urobilinogen Normal mg/dL (Less than 2); WBC/HPF 21-50 HPF (0-3)
[2023-11-24 21:40] LABS: Bacteria/HPF 1+ HPF (None Seen)
[2023-11-25] MEDS: Acetaminophen 325 MG TAB PO PRN ×2 (01:33→09:44)
[2023-11-25] MEDS: Sodium Bicarbonate 150 MEQ in Dextrose 5% in Water 1,000 ML IV SCH ×3 (06:23→22:10)
[2023-11-25 06:35] LABS: #Eosinphils 0.2 thou/uL (0.0-0.7); #Neutrophils 3.1 thou/uL (1.40-6.50); %Basophils 0.7 % (0.0-1.0); %Eosinophils 3.4 % (0.0-10.0); %Lymphocytes 28.1 % (21.0-51.0); %Monocytes 16.9 % (0.0-10.0); %Neutrophils 50.7 % (42.0-75.0); Hematocrit 31.1 % (36.0-47.0); Hemoglobin 10.5 g/dL (12.0-16.0); Mean Corpuscular HGB CONC 33.8 g/dL (32.0-36.0); Mean Corpuscular Hemoglobin 31.8 pg (27.0-31.0); Mean Platelet Volume 9.8 fL (7.4-10.4); Platelet Count 172 10x3/uL (130-400); White Blood Cell (WBC) Count 6.2 10x3/uL (4.8-10.8)
[2023-11-25 06:37] LABS: Mean Corpuscular Volume 94.2 fl (78.0-98.0)
[2023-11-25 07:00] LABS: Anion Gap 14 mmol/L (10-20); BUN (Urea Nitrogen) 39 mg/dL (9.8-20.1); Calc. Creatinine Clearance 35 mL/min (70-130); Carbon Dioxide 26 mmol/L (23-31); Chloride 99 mmol/L (98-107); Estimated GFR 44; Glucose 134 mg/dL (83-110); Magnesium 2.1 mg/dL (1.6-2.6); Potassium 3.6 mmol/L (3.5-5.1); Sodium 135 mmol/L (136-145)
[2023-11-25] MEDS: Aspirin 81 mg Enteric Coated Tablet PO SCH (09:37)
[2023-11-25] MEDS: Thiamine 100 MG TAB PO SCH (09:38)
[2023-11-25] MEDS: Multivit, Therapeutic 1 TAB PO SCH (09:38)
[2023-11-25] MEDS: Folic Acid 1 MG TAB PO SCH (09:38)
[2023-11-25] MEDS ORDERED: Lorazepam 1 MG TAB PO PRN (12:34)
[2023-11-25] MEDS ORDERED: Potassium Chloride 20 MEQ TAB PO SCH (12:45)
[2023-11-25] MEDS: Dronedarone HCl 400 MG TAB PO SCH (17:16)
[2023-11-25] MEDS: Rosuvastatin 20 MG TAB PO SCH (19:57)
[2023-11-25 20:09] LABS: Campy jejuni + coli by PCR Negative (Negative); STEC Shiga Toxin 1+2 Negative (Negative); Salmonella spp. by PCR Negative (Negative); Shigella spp + EIEC by PCR Negative (Negative)
[2023-11-25] MEDS ORDERED: Temazepam 15 MG CAP PO SCH (21:00)
[2023-11-26] MEDS: Folic Acid 1 MG TAB PO SCH (08:39)
[2023-11-26] MEDS: Dronedarone HCl 400 MG TAB PO SCH ×2 (08:39→16:32)
[2023-11-26] MEDS: Aspirin 81 mg Enteric Coated Tablet PO SCH (08:40)
[2023-11-26] MEDS: Multivit, Therapeutic 1 TAB PO SCH (08:40)
[2023-11-26] MEDS: Thiamine 100 MG TAB PO SCH (08:40)
[2023-11-26 09:40] LABS: Anion Gap 12 mmol/L (10-20); BUN (Urea Nitrogen) 19 mg/dL (9.8-20.1); Calc. Creatinine Clearance 45 mL/min (70-130); Calcium 8.2 mg/dL (7.8-10.44); Carbon Dioxide 28 mmol/L (23-31); Chloride 102 mmol/L (98-107); Estimated GFR 59; Glucose 104 mg/dL (83-110); Potassium 3.6 mmol/L (3.5-5.1); Sodium 138 mmol/L (136-145)
[2023-11-26] MEDS ORDERED: Valsartan 80 MG TAB PO SCH (11:15)
[2023-11-26] MEDS ORDERED: Lorazepam 1 MG TAB PO PRN (12:34)
[2023-11-26] MEDS ORDERED: Carvedilol 6.25 MG TAB PO SCH (17:00)
[2023-11-26 17:33] VITALS: BP 148/63; TEMP 97.9
[2023-11-27] MEDS ORDERED: Valsartan 80 MG TAB PO SCH (09:00)
[2023-11-27] MEDS ORDERED: Furosemide 20 MG TAB PO SCH (09:00)
[2023-11-27] MEDS ORDERED: Lorazepam 0.5 MG TAB PO PRN (12:34)
== END 2023-11-26 17:49 | disposition home or self-care (01) | DRG 309 ==
LOC: ERS 09:16 → ERHOLD 11:08 → 2SW 13:25 → OBSVTOIN 11-25 13:03
PROVIDERS: ADMIT Family Medicine; ATTEND Family Medicine
DX: I48.0 Paroxysmal atrial fibrillation (principal); E87.20 Acidosis, unspecified; I50.32 Chronic diastolic (congestive) heart failure; N17.9 Acute kidney failure, unspecified; I13.0 Hypertensive heart and chronic kidney disease with heart failure and stage 1 through stage 4 chronic kidney disease, or unspecified chronic kidney disease; E78.5 Hyperlipidemia, unspecified; Z96.642 Presence of left artificial hip joint; G89.29 Other chronic pain; F10.10 Alcohol abuse, uncomplicated; E16.2 Hypoglycemia, unspecified; N18.30 Chronic kidney disease, stage 3 unspecified; D64.9 Anemia, unspecified; D72.829 Elevated white blood cell count, unspecified; G47.00 Insomnia, unspecified; I08.3 Combined rheumatic disorders of mitral, aortic and tricuspid valves; R91.1 Solitary pulmonary nodule; Z90.49 Acquired absence of other specified parts of digestive tract; Z90.710 Acquired absence of both cervix and uterus; Z98.890 Other specified postprocedural states; Z88.8 Allergy status to other drugs, medicaments and biological substances; Z88.5 Allergy status to narcotic agent; Z88.2 Allergy status to sulfonamides; Z88.1 Allergy status to other antibiotic agents
CPT/HCPCS: 36415; 36416; 71045; 80048; 80053; 81001; 83690; 83735; 83880; 84100; 84443; 84484; 85025; 87324; 87449; 87505; 93005; 93306; 96366; 96372; 96375; G0378; J1650; J3475; J3490; J7070

== ENCOUNTER 2024-09-16 12:10 | Inpatient (IN) | payer MEDICARE, BC ==
[2024-09-16 13:06] LABS: Hematocrit 30.2 % (36.0-47.0); Hemoglobin 10.1 g/dL (12.0-16.0); Mean Corpuscular HGB CONC 33.4 g/dL (32.0-36.0); Mean Corpuscular Hemoglobin 31.4 pg (27.0-31.0); Mean Corpuscular Volume 93.8 fL (78.0-98.0); RBC Distribution Width 17.8 % (11.5-14.5); Red Blood Cell (RBC) Count 3.22 mill/uL (4.20-5.40)
[2024-09-16 13:34] LABS: ALT (SGPT) 124 U/L (8-55); AST (SGOT) 441 U/L (5-34); Albumin 3.1 g/dL (3.4-4.8); Alkaline Phosphatase 78 U/L (40-110); Anion Gap 20 mmol/L (10-20); BUN (Urea Nitrogen) 14 mg/dL (9.8-20.1); Bilirubin, Total 0.5 mg/dL (0.2-1.2); Calc. Creatinine Clearance 0 mL/min (70-130); Calcium 7.7 mg/dL (7.8-10.44); Carbon Dioxide 17 mmol/L (23-31); Chloride 103 mmol/L (98-107); Estimated GFR 67; Glucose 50 mg/dL (83-110); Lipase 30 U/L (8-78); Potassium 3.2 mmol/L (3.5-5.1); Protein, Total 6.1 g/dL (5.8-8.1); Sodium 137 mmol/L (136-145)
[2024-09-16 13:36] LABS: Acetaminophen Less than 10 mcg/mL (Less than 10); Alcohol 23.3 mg/dL (Less than 10); Salicylate Less than 8.0 mg/dL (Less than 8.0); Troponin I 0.016 ng/mL (< 0.028)
[2024-09-16 13:39] LABS: Platelet Adequacy Comment Platelets Decreased; Polychromasia SLIGHT = 2-3 cells HPF (0-2)
[2024-09-16 13:40] LABS: #Basophils 0.04 10x3/uL (0.0-0.2); %Basophils 0.7 % (0.0-1.0); %Eosinophils 2.5 % (0.0-10.0); %Monocytes 14.3 % (0.0-10.0); %Neutrophils 62.3 % (42.0-75.0); Platelet Count 117 10x3/uL (130-400)
[2024-09-16 13:42] LABS: Amphetamine Not Detected (NotDetected); Barbiturates Screen Not Detected (NotDetected); Benzodiazepine Screen Not Detected (NotDetected); Cocaine Metabolite Screen Not Detected (NotDetected); Methadone Not Detected (NotDetected); Methamphetamine Not Detected (NotDetected); Opiate Screen Not Detected (NotDetected); Oxycodone Screen Not Detected (NotDetected); Phencyclidine (PCP) Not Detected (NotDetected); THC/Cannabinoid Screen Detected (NotDetected); Tricyclic Screen Not Detected (NotDetected)
[2024-09-16 13:42] LABS: INR-International Normal Ratio 1.1; PTT 29.6 sec (22.9-36.1); Prothrombin Time 14.4 sec (12.0-14.7)
[2024-09-16] MEDS ORDERED: Ondansetron PF 4 MG/2 ML Vial ONE (15:49)
[2024-09-16] MEDS ORDERED: Ondansetron ODT 4 MG TAB PO PRN (17:13)
[2024-09-16] MEDS ORDERED: Acetaminophen 650 MG Suppository PR PRN (17:13)
[2024-09-16] MEDS ORDERED: Ondansetron PF 4 MG/2 ML Vial IVP PRN (17:13)
[2024-09-16] MEDS ORDERED: Sodium Chloride 0.9% 1,000 ML IV SCH (17:15)
[2024-09-16 18:14] VITALS: BMI 24.6
[2024-09-16] MEDS ORDERED: Electrolyte Replacement Protocol FS PRN (19:15)
[2024-09-16] MEDS ORDERED: Electrolyte Replacement Protocol 1 EACH FS SCH (19:15)
[2024-09-16] MEDS: diphenhydrAMINE 25 MG CAP PO SCH (19:24)
[2024-09-16] MEDS: NS 0.9% w/ 20 MEQ KCL 1,000 ML/1,000 ML BAG IV SCH (19:37)
[2024-09-16 19:44] LABS: Magnesium 1.6 mg/dL (1.6-2.6)
[2024-09-16 20:11] LABS: Hep A IgM AB NONREACTIVE (NonReactive); Hep A IgM S/CO 0.18 S/CO (0-0.79); Hep B Core IgM Index 0.08 S/CO (0-0.79); Hep B Surf Ag NONREACTIVE S/CO (NonReactive); Hep C IgG Ab NONREACTIVE S/CO (NonReactive); Hep C Index 0.13 S/CO (0-0.79); Hepatitis B Core IgM Abs NONREACTIVE S/CO (NonReactive)
[2024-09-16 20:33] LABS: Syphilis Antibody Nonreactive (Nonreactive); Syphilis Antibody Index 0.06 S/CO (<1.00 Non-Reactive)
[2024-09-16] MEDS ORDERED: Albuterol 200 PUFF INH INH PRN (20:58)
[2024-09-16] MEDS ORDERED: Dronedarone HCl 400 MG TAB PO SCH (21:00)
[2024-09-16] MEDS: Melatonin 3 MG TAB PO PRN (21:07)
[2024-09-16] MEDS: Dronedarone HCl 400 MG TAB PO SCH (21:07)
[2024-09-16] MEDS: Carvedilol 6.25 MG TAB PO SCH (21:08)
[2024-09-16] MEDS: Potassium Chloride 20 MEQ TAB PO SCH (21:10)
[2024-09-17] MEDS: Acetaminophen 325 MG TAB PO PRN (00:04)
[2024-09-17 01:41] LABS: Chlam.trachomatis by PCR,Urine Not Detected (NotDetected); GC N.gonorrhoeae PCR,UrineVOID Not Detected (NotDetected)
[2024-09-17 03:52] LABS: #Basophils 0.04 10x3/uL (0.0-0.2); %Basophils 0.7 % (0.0-1.0); %Eosinophils 5.2 % (0.0-10.0); %Lymphocytes 24.4 % (21.0-51.0); %Monocytes 14.6 % (0.0-10.0); %Neutrophils 54.9 % (42.0-75.0); Hematocrit 28.1 % (36.0-47.0); Hemoglobin 9.4 g/dL (12.0-16.0); Mean Corpuscular HGB CONC 33.5 g/dL (32.0-36.0); Mean Corpuscular Hemoglobin 31.6 pg (27.0-31.0); Mean Corpuscular Volume 94.6 fL (78.0-98.0); Platelet Count 110 10x3/uL (130-400); RBC Distribution Width 17.5 % (11.5-14.5); Red Blood Cell (RBC) Count 2.97 mill/uL (4.20-5.40)
[2024-09-17 04:20] LABS: ALT (SGPT) 92 U/L (8-55); AST (SGOT) 240 U/L (5-34); Albumin 2.8 g/dL (3.4-4.8); Alkaline Phosphatase 64 U/L (40-110); Anion Gap 17 mmol/L (10-20); BUN (Urea Nitrogen) 11 mg/dL (9.8-20.1); Bilirubin, Total 0.7 mg/dL (0.2-1.2); Calc. Creatinine Clearance 38 mL/min (70-130); Calcium 7.4 mg/dL (7.8-10.44); Carbon Dioxide 21 mmol/L (23-31); Chloride 103 mmol/L (98-107); Estimated GFR 53; Globulin 2.7 g/dL (2.4-3.5); Glucose 81 mg/dL (83-110); Magnesium 1.6 mg/dL (1.6-2.6); Potassium 3.9 mmol/L (3.5-5.1); Protein, Total 5.5 g/dL (5.8-8.1); Sodium 137 mmol/L (136-145)
[2024-09-17] MEDS: Lorazepam 0.5 MG TAB PO SCH (05:14)
[2024-09-17] MEDS: Magnesium 2 GM/50 ML(in water) 2 GM in Premix 1 BAG IVPB SCH ×2 (05:14→09:43)
[2024-09-17] MEDS: Aspirin 81 mg Enteric Coated Tablet PO SCH (09:44)
[2024-09-17] MEDS: Lansoprazole 30 MG/10 ML UDCUP PER TUBE SCH (10:15)
[2024-09-17 11:08] VITALS: BMI 24.6
[2024-09-17] MEDS: Dronedarone HCl 400 MG TAB PO SCH ×2 (12:41→18:04)
[2024-09-17] MEDS ORDERED: cloNIDine 0.1 MG TAB PO PRN (15:45)
[2024-09-17] MEDS: Melatonin 3 MG TAB PO PRN (21:14)
[2024-09-18 04:42] LABS: #Basophils 0.04 10x3/uL (0.0-0.2); %Basophils 0.5 % (0.0-1.0); %Eosinophils 6.4 % (0.0-10.0); %Monocytes 10.4 % (0.0-10.0); %Neutrophils 63.3 % (42.0-75.0); Hematocrit 29.4 % (36.0-47.0); Hemoglobin 9.7 g/dL (12.0-16.0); Mean Corpuscular Hemoglobin 30.6 pg (27.0-31.0); Mean Corpuscular Volume 92.7 fL (78.0-98.0); Mean Platelet Volume 10.4 fL (7.4-10.4); Platelet Count 100 10x3/uL (130-400); RBC Distribution Width 17.5 % (11.5-14.5); Red Blood Cell (RBC) Count 3.17 mill/uL (4.20-5.40)
[2024-09-18 04:46] LABS: ALT (SGPT) 70 U/L (8-55); AST (SGOT) 141 U/L (5-34); Albumin 2.8 g/dL (3.4-4.8); Alkaline Phosphatase 62 U/L (40-110); Anion Gap 10 mmol/L (10-20); BUN (Urea Nitrogen) 8 mg/dL (9.8-20.1); Bilirubin, Total 0.8 mg/dL (0.2-1.2); Calc. Creatinine Clearance 48 mL/min (70-130); Calcium 7.3 mg/dL (7.8-10.44); Carbon Dioxide 21 mmol/L (23-31); Chloride 108 mmol/L (98-107); Estimated GFR 69; Globulin 2.8 g/dL (2.4-3.5); Glucose 121 mg/dL (83-110); Potassium 3.8 mmol/L (3.5-5.1); Protein, Total 5.6 g/dL (5.8-8.1); Sodium 135 mmol/L (136-145)
[2024-09-18 08:24] VITALS: TEMP 98.8
[2024-09-18 08:57] VITALS: BP 152/83
[2024-09-18] MEDS ORDERED: ALPRAZolam 0.25 MG TAB PO PRN (09:00)
[2024-09-18] MEDS ORDERED: Torsemide 10 MG TAB PO PRN (09:07)
[2024-09-18 14:51] LABS: Campy jejuni + coli by PCR Negative (Negative); STEC Shiga Toxin 1+2 Negative (Negative); Salmonella spp. by PCR Negative (Negative); Shigella spp + EIEC by PCR Negative (Negative)
== END 2024-09-18 11:25 | disposition home or self-care (01) | DRG 641 ==
LOC: ERS 12:10 → PCU 16:46 → OBSVTOIN 09-17 15:49
PROVIDERS: ADMIT Internal Medicine; ATTEND Family Medicine
DX: E86.0 Dehydration (principal); E87.6 Hypokalemia; I50.9 Heart failure, unspecified; I48.91 Unspecified atrial fibrillation; E78.5 Hyperlipidemia, unspecified; K76.0 Fatty (change of) liver, not elsewhere classified; D69.6 Thrombocytopenia, unspecified; Z90.49 Acquired absence of other specified parts of digestive tract; Z90.710 Acquired absence of both cervix and uterus; Z88.8 Allergy status to other drugs, medicaments and biological substances
CPT/HCPCS: 36415; 36416; 70450; 76705; 80053; 80074; 80306; 80307; 82550; 83690; 83735; 84443; 84484; 85025; 85610; 85730; 86780; 87491; 87505; 87591; 93005; 96361; 96374; J2405; J3475; J3480

== ENCOUNTER 2025-05-28 11:39 | Emergency (ER) | payer MEDICARE, BC ==
[2025-05-28 12:23] LABS: #Basophils 0.03 10x3/uL (0.0-0.2); #Eosinophils 0.08 10x3/uL (0.0-0.7); #Monocytes 0.76 10x3/uL (0.11-0.59); #Neutrophils 3.43 10x3/uL (1.40-6.50); %Basophils 0.5 % (0.0-1.0); %Eosinophils 1.3 % (0.0-10.0); %Lymphocytes 29.5 % (21.0-51.0); %Monocytes 12.4 % (0.0-10.0); %Neutrophils 56.0 % (42.0-75.0); Hematocrit 33.0 % (36.0-47.0); Hemoglobin 10.8 g/dL (12.0-16.0); Mean Corpuscular Hemoglobin 29.6 pg (27.0-31.0); Mean Corpuscular Volume 90.4 fL (78.0-98.0); Platelet Count 207 10x3/uL (130-400); Red Blood Cell (RBC) Count 3.65 mill/uL (4.20-5.40); White Blood Cell (WBC) Count 6.13 10x3/uL (4.8-10.8)
[2025-05-28 12:50] LABS: ALT (SGPT) 17 U/L (Less than 34); AST (SGOT) 28 U/L (11-34); Albumin 3.1 g/dL (3.1-4.5); Alkaline Phosphatase 68 U/L (40-110); Anion Gap 12 mmol/L (10-20); BUN (Urea Nitrogen) 20 mg/dL (9.8-20.1); Bilirubin, Total 0.6 mg/dL (0.3-1.2); Calc. Creatinine Clearance 0 mL/min (70-130); Calcium 8.5 mg/dL (7.8-10.44); Carbon Dioxide 24 mmol/L (23-31); Chloride 106 mmol/L (98-107); Globulin 3.3 g/dL (2.4-3.5); Glucose 103 mg/dL (83-110); Potassium 4.1 mmol/L (3.5-5.1); Sodium 138 mmol/L (136-145)
[2025-05-28 12:56] LABS: Troponin I Less than 0.010 ng/mL (< 0.028)
== END 2025-05-28 13:35 | disposition home or self-care (01) ==
LOC: ERS 11:39
DX: I11.0 Hypertensive heart disease with heart failure (principal); I50.9 Heart failure, unspecified; Z55.6 Problems related to health literacy
CPT/HCPCS: 36415; 80053; 83880; 84484; 85025; 93005; 99283

== ENCOUNTER 2025-09-16 12:58 | Outpatient (CLI) | payer MEDICARE, BC | END 2025-09-16 12:59 | disposition home or self-care (01) | LOC: CT 12:58 | PROVIDERS: ATTEND Family Medicine | DX: R10.A3 Flank pain, bilateral (principal); K57.32 Diverticulitis of large intestine without perforation or abscess without bleeding | CPT/HCPCS: 74176 ==

== ENCOUNTER 2025-09-28 12:26 | Outpatient (CLI) | payer MEDICARE, BC | END 2025-09-28 12:27 | disposition home or self-care (01) | LOC: BICMAMMO 12:26 | PROVIDERS: ATTEND Family Medicine | DX: Z12.31 Encounter for screening mammogram for malignant neoplasm of breast (principal) | CPT/HCPCS: 77063; 77067 ==